=== PATIENT | male | born 1980 | race Hispanic/Latino ===

== ENCOUNTER 2017-05-29 19:39 | Emergency (ER) | payer OTHER ==
[~2017-05-29] VITALS: Ht 182.9 cm; Wt 65.8 kg
[~2017-05-29 19:39] MED LIST: KEFLEX500 MG OR; LORTAB 7.5 OR; NO MEDS
[2017-05-29] MEDS ORDERED: GENTAMICIN0.3 % OS (21:25)
[2017-05-29 21:45] VITALS: BP 138/83
== END 2017-05-29 21:47 | disposition home or self-care (01) | DRG 125 ==
LOC: ED 19:39
DX: H10.9 Unspecified conjunctivitis (principal); H57.12 Ocular pain, left eye